=== PATIENT | female | born 2000 | race Caucasian/White ===

== ENCOUNTER 2024-09-28 02:39 | Emergency (ER) | payer OTHER ==
[~2024-09-28] VITALS: Ht 149.9 cm; Wt 54.0 kg
[2024-09-28] MEDS ORDERED: KETOROLAC TROMETHAMINE INJ 30 MG/ML VIAL ONE (03:53)
[2024-09-28] MEDS ORDERED: ONDANSETRON HCL/PF 4 MG/2 ML VIAL ONE (03:53)
[2024-09-28] MEDS: IV NS 0.9% 500 ML BAG IV ONE (03:59)
[2024-09-28] MEDS: ONDANSETRON HCL/PF 4 MG/2 ML VIAL IVP ONE (04:00)
[2024-09-28 04:06] LABS: PLATELET COUNT (AUTO) 198 K/uL (150-450); RED BLOOD CELL COUNT(AUTO) 4.47 MIL/uL (4.0-5.2); RED CELL DISTRIBUTION WIDTH 12.9 % (11.5-15.0); WHITE BLOOD COUNT (AUTO) 8.5 K/uL (4.3-11.0)
[2024-09-28 04:11] LABS: APPEARANCE,URINE CLEAR (CLEAR); BLOOD, URINE NEGATIVE Ery/uL (NEGATIVE); LEUKOCYTE ESTERASE ,URINE NEGATIVE (NEGATIVE); NITRITE, URINE NEGATIVE (NEGATIVE); UGLUCOSE NEGATIVE (NEGATIVE)
[2024-09-28 04:14] LABS: CALCIUM, SERUM 8.9 mg/dL (8.5-10.1); CREATININE 0.9 mg/dL (0.6-1.3); SODIUM SERUM 141.0 mmol/L (136-145); UREA NITROGEN, BLOOD 17.0 mg/dL (7-18)
[2024-09-28 04:19] LABS: ASPARTATE AMINOTRANSFERASE 19.0 U/L (15-37); TOTAL PROTEIN, SERUM 7.6 g/dL (6.4-8.2)
[2024-09-28 04:20] LABS: INR 1.05 (0.91-1.10)
[2024-09-28 04:20] LABS: PREGNANCY TEST URINE QUAL NEGATIVE (NEGATIVE)
[2024-09-28 04:22] LABS: ADD URINE CULTURE NO; SQUAMOUS EPITHELIAL CELL,UR Moderate /HPF (None Seen)
[2024-09-28 04:24] LABS: COARSE GRANULAR CASTS,URINE Few /LPF (None Seen)
[2024-09-28] MEDS: KETOROLAC TROMETHAMINE INJ 30 MG/ML VIAL IV ONE (04:34)
[2024-09-28 06:26] VITALS: TEMP 98.2
[2024-09-28] MEDS ORDERED: ONDA4TAB11 PO (07:43)
[2024-09-28 07:56] VITALS: BP 101/68; O2SAT 97
== END 2024-09-28 07:55 | disposition home or self-care (01) ==
LOC: ER 02:44
DX: R10.2 Pelvic and perineal pain (principal); Z88.0 Allergy status to penicillin; Z60.2 Problems related to living alone
CPT/HCPCS: 99285; 96374; 76856; 96361; 96375; 85025; 80048; 80076; 84703; 81001; 36415; 85730; J1885; J2405; J7040